=== PATIENT | male | born 1955 | race Caucasian/White ===

== ENCOUNTER 2018-12-13 08:22 | Day surgery (SDC) | payer OTHER ==
[2018-12-12 14:10] VITALS: BMI 29.3
[2018-12-13 10:27] VITALS: TEMP 97.9
[2018-12-13 17:05] VITALS: BP 122/77; PULSE 57
--- NOTE | 2018-12-17 10:08 | PATH ---
Surgical Pathology Report Patient Name: WANDA TAY [facility]. Rec. #: [id number] /Age/Gender: 1955 (Age: 63) / M Account: [id number] Location: [facility]-ENDOSCOPY Taken: 12/13/2018 Received: 12/13/2018 Reported: 12/17/2018 Physicians: Cabrera Bai M.D. Specimen(s) Received A: BX SECOND PORTION DUODENUM AND DUODENAL BULB B: BX ANTRUM C: DISTAL ESOPHAGUS D: MID ESOPHAGUS E: CECAL POLYP F: RIGHT COLON POLYP G: DISTAL TRANSVERSE POLYP Clinical History Acid reflux, anemia Postoperative diagnosis: hiatal hernia, GERD, colon polyps, diverticulosis Final Diagnosis A. SECOND PORTION DUODENUM AND DUODENUM BULB, BIOPSY: DUODENUM MUCOSA WITH NONSPECIFIC CHRONIC DUODENITIS. B. ANTRUM, BIOPSY: GASTRIC MUCOSA WITH CHRONIC GASTRITIS. IMMUNOSTAIN FOR H. PYLORI IS NEGATIVE. NEGATIVE FOR INTESTINAL METAPLASIA. C. DISTAL ESOPHAGUS, BIOPSY: ESOPHAGEAL MUCOSA WITH REFLUX ESOPHAGITIS. NEGATIVE FOR INTESTINAL METAPLASIA. D. MID ESOPHAGUS, BIOPSY: ESOPHAGEAL MUCOSA WITH NO SIGNIFICANT PATHOLOGIC CHANGE. NO HISTOLOGIC EVIDENCE OF EOSINOPHILIC ESOPHAGITIS. E. CECAL POLYP, BIOPSY: COLONIC MUCOSA WITH REACTIVE LYMPHOID AGGREGATE. F. RIGHT COLON POLYP, POLYPECTOMY: TUBULAR ADENOMA. G. DISTAL TRANSVERSE COLON POLYP, BIOPSY : COLONIC MUCOSA WITH REACTIVE LYMPHOID AGGREGATE. Electronically Signed Eddie Mccoy M.D. Gross Description A. Received in formalin, labeled "second portion duodenum and duodenum bulb" are 4 cabrera, irregular portions of soft tissue measuring 0.1 to 0.3 cm. in greatest dimension. The specimens are submitted in toto in one cassette. B. Received in formalin, labeled "antrum" are 4 cabrera, irregular portions of soft tissue measuring 0.1 to 0.5 cm. in greatest dimension. The specimens are submitted in toto in one cassette. C. Received in formalin, labeled "distal esophagus" are 2 cabrera, irregular portions of soft tissue measuring 0.2 cm. in greatest dimension. The specimens are submitted in toto in one cassette. D. Received in formalin, labeled "mid esophagus" is a cabrera, irregular portion of soft tissue measuring 0.3 cm. in greatest dimension. The specimens are submitted in toto in one cassette. E. Received in formalin, labeled "rectal polyp" are 3 cabrera, irregular portion of soft tissue measuring 0.1 to 0.3 cm. in greatest dimension. The specimens are submitted in toto in one cassette. F. Received in formalin, labeled "right colon polyp" is a cabrera, irregular portion of soft tissue measuring 0.4 cm. in greatest dimension. The specimens are submitted in toto in one cassette. G. Received in formalin, labeled "distal transverse polyp" is a cabrera, irregular portions of soft tissue measuring 0.3 cm. in greatest dimension. The specimens are submitted in toto in one cassette. __ KWDaryl/12/13/2018 barbie/12/13/2018
== END 2018-12-13 11:25 | disposition home or self-care (01) ==
LOC: JASU-ENDO 08:22
PROVIDERS: ATTEND Internal Medicine Gastroenterology
PROC: 0DBL8ZX Excision of Transverse Colon, Via Natural or Artificial Opening Endoscopic, Diagnostic (ICD-10-PCS; 2018-12-13)
PROC: 0DBH8ZX Excision of Cecum, Via Natural or Artificial Opening Endoscopic, Diagnostic (ICD-10-PCS; 2018-12-13)
PROC: 0DB98ZX Excision of Duodenum, Via Natural or Artificial Opening Endoscopic, Diagnostic (ICD-10-PCS; 2018-12-13)
PROC: 0DB68ZX Excision of Stomach, Via Natural or Artificial Opening Endoscopic, Diagnostic (ICD-10-PCS; 2018-12-13)
PROC: 0DB28ZX Excision of Middle Esophagus, Via Natural or Artificial Opening Endoscopic, Diagnostic (ICD-10-PCS; 2018-12-13)
PROC: 0DB38ZX Excision of Lower Esophagus, Via Natural or Artificial Opening Endoscopic, Diagnostic (ICD-10-PCS; 2018-12-13)
PROC: 0DBK8ZX Excision of Ascending Colon, Via Natural or Artificial Opening Endoscopic, Diagnostic (ICD-10-PCS; principal; 2018-12-13 09:15)
DX: Z86.010 Personal history of colon polyps (principal); D12.0 Benign neoplasm of cecum; D12.2 Benign neoplasm of ascending colon; D12.3 Benign neoplasm of transverse colon; K57.30 Diverticulosis of large intestine without perforation or abscess without bleeding; K64.8 Other hemorrhoids; K29.80 Duodenitis without bleeding; K29.50 Unspecified chronic gastritis without bleeding; K21.0 Gastro-esophageal reflux disease with esophagitis; I10 Essential (primary) hypertension; E78.5 Hyperlipidemia, unspecified; N40.0 Benign prostatic hyperplasia without lower urinary tract symptoms
CPT/HCPCS: 88305-TC; 88342-TC

== ENCOUNTER 2022-07-14 04:21 | Day surgery (SDC) | payer OTHER ==
[2022-07-13 13:56] VITALS: BMI 26.4
[2022-07-14 13:00] VITALS: BP 100/59; PULSE 56; RESP 16; TEMP 98
== END 2022-07-14 13:02 | disposition home or self-care (01) ==
LOC: JASU-ENDO 04:21
PROVIDERS: ATTEND Internal Medicine Gastroenterology
PROC: 0DJD8ZZ Inspection of Lower Intestinal Tract, Via Natural or Artificial Opening Endoscopic (ICD-10-PCS; principal; 2022-07-14 12:30)
DX: Z12.11 Encounter for screening for malignant neoplasm of colon (principal); Z86.010 Personal history of colon polyps